=== PATIENT | male | born 1960 | race Two or more races ===

== ENCOUNTER 2024-12-10 10:50 | Emergency (ER) | payer OTHER ==
[~2024-12-10] VITALS: Ht 185.4 cm; Wt 83.9 kg
[2024-12-10] MEDS ORDERED: KETOROLAC TROMETHAMINE 60 MG VIAL IM ONE ×2 (12:00→12:04)
[2024-12-10] MEDS ORDERED: DEXAMETHASONE SODIUM PHOSPHATE 4 MG/ML VIAL IM ONE (12:00)
[2024-12-10] MEDS ORDERED: ORPHENADRINE CITRATE 100 MG TABLET PO ONE (12:00)
[2024-12-10] MEDS ORDERED: DEXAMETHASONE SODIUM PHOSPHATE 4 MG/ML VIAL ONE (12:04)
[2024-12-10] MEDS ORDERED: FEXMID7.5 MG PO (13:47)
[2024-12-10] MEDS ORDERED: NAPR500T14 PO (13:47)
== END 2024-12-10 13:50 | disposition home or self-care (01) ==
LOC: ER 10:50
DX: M54.2 Cervicalgia (principal)